=== PATIENT | female | born 1990 | race Caucasian/White ===

== ENCOUNTER 2020-10-24 19:49 | Emergency (ER) | payer MEDICAID ==
[~2020-10-24] VITALS: Ht 157.5 cm; Wt 59.1 kg
[2020-10-24 22:46] LABS: BASOPHILS % (AUTO) 0.3 % (0-1); EOSINOPHILS % (AUTO) 0.1 % (0-6); HEMOGLOBIN 13.7 g/dl (12.0-16.0); LYMPHOCYTES # (AUTO) 1.5 X10'3 (1.1-4.8); MEAN CORPUSCULAR HEMOGLOBIN 30.7 PG (27.0-31.0); MEAN CORPUSCULAR HGB CONC 33.4 g/dL (33.0-36.5); MEAN CORPUSCULAR VOLUME 91.9 FL (78-98); MEAN PLATELET VOLUME 8.2 FL (7.4-10.4); MONOCYTES # (AUTO) 0.7 X10'3 (0-0.9); MONOCYTES % (AUTO) 7.6 % (2-12); NEUTROPHILS # (AUTO) 7.2 X10'3 (1.8-7.7); PLATELET COUNT 362 X10'3 (140-440); RED BLOOD COUNT 4.46 X10'6 (4.20-5.60); RED CELL DISTRIBUTION WIDTH 13.5 % (11.5-14.5); WHITE BLOOD COUNT 9.5 X10'3 (4.5-11.0)
[2020-10-24 22:57] LABS: ALANINE AMINOTRANSFERASE 22 U/L (12-78); ALBUMIN 4.5 G/DL (3.4-5.0); ALBUMIN/GLOBULIN RATIO 1.4 (1.1-1.5); ALKALINE PHOSPHATASE 72 IU/L (46-116); ANION GAP 11 (8-16); ASPARTATE AMINO TRANSFERASE 19 U/L (10-37); BILIRUBIN,TOTAL 0.3 MG/DL (0.1-1.0); BLOOD UREA NITROGEN 9 MG/DL (7-18); BUN/CREATININE RATIO 9.9 (6.6-38.0); CALCIUM 9.4 MG/DL (8.5-10.1); CHLORIDE 103 MMOL/L (99-107); CREATININE 0.91 MG/DL (0.40-0.90); GLUCOSE 109 MG/DL (70-104); POTASSIUM 3.2 MMOL/L (3.5-5.1); SODIUM 141 MMOL/L (135-145); TOTAL PROTEIN 7.8 G/DL (6.4-8.2); eGFR 73 ML/MIN
[2020-10-24 23:05] LABS: ETHANOL < 0.010 GM/DL (0.0-0.010)
[2020-10-24 23:24] LABS: URINE HCG NEGATIVE (NEG)
[2020-10-24 23:30] LABS: CLARITY,URINE CLEAR (Clear); COLOR,URINE YELLOW (Yellow); GLUCOSE, URINE NEGATIVE (Neg); KETONES,URINE NEGATIVE (Neg); LEUKOCYTE ESTERASE ,URINE NEGATIVE (Neg); NITRITES, URINE NEGATIVE (Neg); OCCULT BLOOD,URINE NEGATIVE (Neg); PROTEIN,URINE NEGATIVE (Neg); UA COLLECTION TYPE CLN CATCH MIDSTREAM; UROBILINOGEN,URINE 0.2 E.U/dL (0.2-1.0)
[2020-10-24 23:38] LABS: URINE AMPHETAMINE SCREEN NEGATIVE (Neg); URINE BARBITUATE SCREEN NEGATIVE (Neg); URINE BENZODIAZEPINES SCREEN NEGATIVE (Neg); URINE CANNABINOID SCREEN NEGATIVE (Neg); URINE COCAINE SCREEN NEGATIVE (Neg); URINE METHADONE SCREEN NEGATIVE (Neg); URINE OPIATE SCREEN NEGATIVE (Neg); URINE PHENCYCLIDINE SCREEN NEGATIVE (Neg)
--- NOTE | 2020-10-25 01:14 | NUR ---
PACKET FAXED TO [facility]
[2020-10-25] MEDS ORDERED: IBUP-1986 PO (01:42)
[2020-10-25] MEDS ORDERED: FLUO-103 PO (01:42)
[2020-10-25] MEDS ORDERED: GABA800T11 PO (01:42)
[2020-10-25] MEDS ORDERED: TOPI25TA49 PO ×2 (01:42)
[2020-10-25] MEDS ORDERED: TRAZ-251 PO (01:43)
--- NOTE | 2020-10-25 01:44 | NUR ---
Med rec completed using external med history.
--- NOTE | 2020-10-25 01:55 | NUR ---
Pt standing at window. She states somebody is calling her trying to 'get a hold of her' and she is 'hearing secrets'
[2020-10-25] MEDS ORDERED: traZODone 150mg tablet PO SCH ×2 (02:00→21:00)
[2020-10-25] MEDS ORDERED: traZODone 150mg tablet PO ONE (02:00)
[2020-10-25] MEDS ORDERED: ibuprofen tablet 400 MG TABLET PO PRN (04:15)
--- NOTE | 2020-10-25 06:26 | NUR ---
PATIENT MOVED FROM ER BED 10 TO ER OVERFLOW BED 26
--- NOTE | 2020-10-25 06:30 | NUR ---
PT TRANSFERRED FROM MAIN ER 10 TO OVERFLOW 26
--- NOTE | 2020-10-25 07:00 | NUR ---
PT IS SLEEPING
[2020-10-25] MEDS ORDERED: topiramate 25mg tablet PO SCH ×2 (08:00→21:00)
[2020-10-25] MEDS: gabapentin 400mg capsule PO SCH ×3 (08:00→20:16)
[2020-10-25] MEDS ORDERED: FLUoxetine 10mg capsule PO SCH (08:00)
--- NOTE | 2020-10-25 08:18 | NUR ---
PT IS NOT ALERT OR AWAKE ENOUGH TO TAKE PO MEDS AT THIS TIME
--- NOTE | 2020-10-25 09:18 | NUR ---
PT IS SLEEPING
--- NOTE | 2020-10-25 10:00 | NUR ---
PT IS SLEEPING IN HER BED. NO ISSUES AT THIS TIME
--- NOTE | 2020-10-25 10:59 | NUR ---
PT IS SLEEPING IN HER BED. NO ISSUES AT THIS TIME
--- NOTE | 2020-10-25 11:00 | NUR ---
PT IS SLEEPING. NORMAL RR. NO CONCERNS AT THIS TIME
--- NOTE | 2020-10-25 12:00 | NUR ---
PT IS SLEEPING. NORMAL RR. NO CONCERNS AT THIS TIME
--- NOTE | 2020-10-25 13:00 | NUR ---
PT IS SLEEPING. NORMAL RR. NO CONCERNS AT THIS TIME
--- NOTE | 2020-10-25 14:16 | NUR ---
PT HAS BEEN ACCEPTED TO [facility] AFTER CHANGE OF SHIFT THIS EVENING
--- NOTE | 2020-10-25 15:00 | NUR ---
PT IS SLEEPING. NORMAL RR. NO CONCERNS AT THIS TIME
--- NOTE | 2020-10-25 16:00 | NUR ---
PT ACCEPTED TO [facility]
--- NOTE | 2020-10-25 17:00 | NUR ---
PT IS SLEEPING. NORMAL RR. NO CONCERNS AT THIS TIME
--- NOTE | 2020-10-25 19:46 | NUR ---
Pt assisted to restroom, given meal tray and warm blankets. Pt verbally accusing staff of lying to her about her meal and insisting she was not medicated properly during the day. Pt reassured day shift was refusing to wake during the day to take her medications. Pt reassured her night time medications will be given to her shortly.
--- NOTE | 2020-10-25 21:38 | NUR ---
Pt medicated for night time meds, taken upstairs to [facility]. Pt belonging samuel pt who was taken by wheelchair with security assisting tech from [facility].
[2020-10-25 21:43] VITALS: BP 118/79
== END 2020-10-25 21:46 ==
LOC: ER 19:50
DX: R45.851 Suicidal ideations (principal); R20.2 Paresthesia of skin; F41.9 Anxiety disorder, unspecified; F32.9 Major depressive disorder, single episode, unspecified; Z86.61 Personal history of infections of the central nervous system; Z79.899 Other long term (current) drug therapy
CPT/HCPCS: 36415; 80053; 80305; 80320; 81003; 81025; 84443; 85025; 99285